=== PATIENT | female | born 1995 | race Caucasian/White ===

== ENCOUNTER 2017-07-03 15:05 | Outpatient (CLI) | payer OTHER | END 2017-07-03 15:06 | disposition home or self-care (01) | LOC: CTENTCT 15:05 | PROVIDERS: ATTEND Specialist | DX: J32.9 Chronic sinusitis, unspecified (principal) | CPT/HCPCS: 70486 ==

== ENCOUNTER 2018-09-23 13:51 | Day surgery (SDC) | payer OTHER ==
[2018-09-22 14:37] VITALS: BMI 45.3
[2018-09-23] MEDS ORDERED: Oxymetazoline HCl 0.05% ( 15 ML ) ONE (14:14)
[2018-09-23 14:44] LABS: BHCG - Serum Negative (NEGATIVE); Pregs Control Background? CLEAR/WHITE (CLR/WHITE); Pregs Control Bar Appear? YES (CONTROL BAR)
[2018-09-23] MEDS ORDERED: Fentanyl 100 MCG/2 ML VIAL ONE ×3 (15:01→16:24)
[2018-09-23] MEDS ORDERED: Midazolam HCl 2 mg/2 ml Vial ONE (15:01)
[2018-09-23] MEDS ORDERED: Lidocaine 1% w/Epinephrine 1:100K 30 ML VIAL ONE (15:03)
[2018-09-23] MEDS ORDERED: Ferric Subsulfate 8 ML BOT ONE (15:35)
[2018-09-23] MEDS ORDERED: Morphine 4 MG/ML VIAL ONE (17:04)
[2018-09-23] MEDS ORDERED: Succinylcholine Chloride 20 MG/ML 10 ml SYRINGE FS ONE (19:53)
[2018-09-23] MEDS ORDERED: Lidocaine 1% PF 5 ML VIAL ONE (19:53)
[2018-09-23] MEDS ORDERED: Ondansetron PF 4 MG/2 ML Vial ONE (19:53)
[2018-09-23] MEDS ORDERED: PROPOFOL 200 MG/20 ML VIAL ONE (19:53)
[2018-09-23] MEDS ORDERED: Dexamethasone 20 MG/5 ML VIAL ONE (19:53)
--- NOTE | 2018-09-24 11:50 | OP ---
DATE OF PROCEDURE: 09/23/2018 PREOPERATIVE DIAGNOSES: Chronic tonsillitis, recurrent tonsillitis, and obstructive hypertrophic inferior turbinates. POSTOPERATIVE DIAGNOSES: Chronic tonsillitis, recurrent tonsillitis, and obstructive hypertrophic inferior turbinates. PROCEDURES PERFORMED: Tonsillectomy over 12 years of age and bilateral nasal endoscopy with submucosal resection of inferior turbinates. DESCRIPTION OF PROCEDURE: After consent was obtained, the patient was identified, brought to the operating room, and placed on the operating room table in the supine position. Consent was obtained, notifying the patient of the possibility of additional infections, bleeding, brain injury, and eye/orbital injury. The patient was placed on the operating room table, and general endotracheal anesthesia and intravenous access was obtained. The patient was then positioned, prepped and draped for endoscopic sinus surgery. Nasal preparation included trimming nasal vestibular hairs and spraying in topical Afrin. We then placed Afrin topical solution on nasal pledgets and strategically located them intranasally. The perinasal mucosa was injected with 1% lidocaine with 1:100,000 epinephrine in the submucoperichondrial plane of the septum, lateral nasal wall, and anterior to the uncinate. The patient was then prepped and draped in a sterile fashion and positioned for endoscopic sinus surgery. TONSILLECTOMY OVER 12 YEARS OF AGE: After consent was obtained, the patient was identified, brought to the operating room, and placed on the operating table in the supine position. General endotracheal anesthesia and intravenous access was obtained and we proceeded with positioning the patient for oropharyngeal surgery. Oropharyngeal exposure was obtained with a Lashawn-Gurpreet mouth gag after a head drape was placed and secured with a towel clip. The Lashawn-Gurpreet mouth gag was then suspended from the James tray and palatal elevation was achieved with a red rubber catheter. The right tonsil was addressed first. We used a curved Allis to grasp the tonsil and retract it medially as an anterior pillar incision was made with a #12 blade. The retrotonsillar fascial plane was then established and blunt dissection was performed with the suction cautery. Blood vessels were anticipated, identified, and cauterized as they were encountered. Ultimately, dissection was carried to the posterior tonsillar pillar mucosa which was incised hemostatically, as well as the base of tongue connection. The tonsil was then passed off as a specimen and bleeding points within the tonsillar bed were cauterized under direct visualization. We subsequently turned our attention to the contralateral side, where using a similar technique, a near identical procedure was performed. Again, the tonsil was grasped and retracted medially with a curved Allis as an anterior pillar incision was made with a #12 blade. The retrotonsillar fascial plane was established and while the anterior pillar was retracted medially, the hemostatic blunt dissection of the tonsil with a suction cautery was performed with blood vessels anticipated, identified, and cauterized as they were encountered. Again, dissection continued to the base of tongue and posterior tonsillar pillar mucosa which was incised in a hemostatic fashion. The tonsillar beds were then carefully inspected and bleeding points were identified and cauterized with a suction cautery. After this portion of the procedure, hemostasis was completely obtained. The patient's oral cavity was copiously irrigated with iced saline and subsequently suctioned. We then used the red rubber catheter to suction the gastric contents and the patient was subsequently aroused, awakened, and extubated without difficulty and transported to the recovery room in stable condition. There were no complications. BILATERAL NASAL ENDOSCOPY WITH SUBMUCOSAL RESECTION OF INFERIOR TURBINATES: After consent was obtained, the patient was identified, brought to the operating room, and placed on the operating room table in the supine position. Consent was obtained, notifying the patient of the possibility of additional infections, bleeding, brain injury, and eye/orbital injury. The patient was placed on the operating room table, and general endotracheal anesthesia and intravenous access was obtained. The patient was then positioned, prepped and draped for endoscopic sinus surgery. Nasal preparation included trimming nasal vestibular hairs and spraying in topical Afrin. We then placed Afrin topical solution on nasal pledgets and strategically located them intranasally. The perinasal mucosa was injected with 1% lidocaine with 1:100,000 epinephrine in the submucoperichondrial plane of the septum, lateral nasal wall, and anterior to the uncinate. The patient was then prepped and draped in a sterile fashion and positioned for endoscopic sinus surgery. With the 0-degree endoscope, the patient underwent systematic nasal endoscopy. There were no suspicious internasal masses or lesions identified. We then focused our attention to the osteomeatal complex region under the middle turbinate. The inferior turbinates were visualized with a 0 degree endoscope and outfractured with a [place] elevator. The inferior medial aspect was cauterized with the electrocautery. Hemostasis was obtained . After adequate airway was established, we turned our attention to the contralateral side and used a similar procedure. Again, a [place] elevator was used to outfracture inferior turbinates under endoscopic visualization. With a suction cautery, the free inferior medial aspect was cauterized under direct visualization along the length of the inferior turbinate. At this point, we then turned our attention to the contralateral side and proceeded with endoscopic sinus surgery. At the completion of the case, Rice keel splints were placed in the ethmoid cavities after the ethmoidectomy. There were no complications. The patient tolerated the procedure well and was discharged to the recovery room in stable condition prior to return to the preoperative day stay with ultimate discharge home. Prescriptions for pain medication and antibiotics were provided. The patient received intramuscular Depo-Medrol during the case. Job ID: [id number]
== END 2018-09-23 18:28 | disposition home or self-care (01) ==
LOC: SDC 13:51
PROVIDERS: ATTEND Specialist
PROC: 09SL8ZZ Reposition Nasal Turbinate, Via Natural or Artificial Opening Endoscopic (ICD-10-PCS; principal; 2018-09-23)
PROC: 0CTPXZZ Resection of Tonsils, External Approach (ICD-10-PCS; principal; 2018-09-23)
DX: J35.01 Chronic tonsillitis (principal); J03.91 Acute recurrent tonsillitis, unspecified; J34.3 Hypertrophy of nasal turbinates
CPT/HCPCS: 84703; 85014; 88304; 96374; J1100; J2001; J2250; J2270; J2405; J2704; J3010